=== PATIENT | male | born 1965 | race Caucasian/White ===

== ENCOUNTER 2019-08-18 18:28 | Emergency (ER) | payer BC ==
[~2019-08-18] VITALS: Ht 182.9 cm; Wt 88.5 kg
[2019-08-18 18:49] VITALS: Ht 182.9 cm; Wt 88.5 kg
[2019-08-18 19:50] VITALS: BP 154/105
== END 2019-08-18 19:50 | disposition home or self-care (01) ==
LOC: ED 18:28
DX: S82.842A Displaced bimalleolar fracture of left lower leg, initial encounter for closed fracture (principal); J45.909 Unspecified asthma, uncomplicated; Z88.0 Allergy status to penicillin; X50.1XXA Overexertion from prolonged static or awkward postures, initial encounter; Y93.89 Activity, other specified; Y92.89 Other specified places as the place of occurrence of the external cause; Y99.8 Other external cause status
CPT/HCPCS: Q0092

== ENCOUNTER → 2019-08-31 | Day surgery (SDC) | payer OTHER ==
[~2019-08-31] VITALS: Ht 182.9 cm; Wt 88.5 kg
[2019-08-31 14:29] VITALS: BP 156/96
[2019-09-01 06:17] VITALS: BP 111/82
[2019-09-01 07:34] VITALS: BP 132/87
[2019-09-01 08:46] VITALS: BP 132/87
== END | disposition home or self-care (01) ==
LOC: DS 13:45 → MU 13:45 → OR 17:00 → DS 17:00 → MU 21:02 → DS 21:02
DX: S82.842A Displaced bimalleolar fracture of left lower leg, initial encounter for closed fracture (principal); J45.909 Unspecified asthma, uncomplicated; Z88.8 Allergy status to other drugs, medicaments and biological substances; Z79.899 Other long term (current) drug therapy; X58.XXXA Exposure to other specified factors, initial encounter; Y93.89 Activity, other specified; Y92.89 Other specified places as the place of occurrence of the external cause; Y99.8 Other external cause status
CPT/HCPCS: 76001; C1713; G0378; J1170; J1885; J2250; J2270; J2704; J3010; J3490; J7030; J7120